=== PATIENT | female | born 1940 | race Caucasian/White ===

== ENCOUNTER 2020-09-06 14:03 | Emergency (ER) | payer OTHER ==
[~2020-09-06] VITALS: Ht 165.1 cm; Wt 68.0 kg
--- NOTE | ~2020-09-06 | EMS ---
[address] [address] EMS Patient Care Report Name: BILL MEJIA [id number] Admission: 09/06/20 Attend Phys: Discharge: Date of : 38 Report #: [id number] THIS REPORT FOR: //name// Report Transmitted: 09/06/2020 14:03 EMS Care Summary [facility] [place] Incident [id number] @ 09/06/2020 13:21 Incident [id number] [place] [address] Patient LAURA MEJIA Female, 80 Years 1940 Patient Address [address] [place] [address] Patient History Hypertension (HTN),Hyperlipidemia, Patient Allergies , Patient Medications Aspirin, Chief Complaint Weakness Disposition Transported No Lights/[place] Dispatch Reason Sick Person Transported To [facility] Narrative Dispatched to address noted for weakness. [facility] en route at time noted. Arrived and found [facility] on scene with the patient. Patient was laying in bed. She was awake and alert. Patient stated she fell two times today after having syncopal episodes. Patient stated she does have a history of vasovagal issues [address] [address] EMS Patient Care Report Name: BILL MEJIA Room: [facility] Ch#: [id number] Admission: 09/06/20 Attend Phys: Discharge: Date of : 38 Report #: [id number] but after she was has tested positive for COVID-19 on wednesday she has been more weak and unable to walk short distances. Patient appeared pale but vitals where within normal limits. Patient stated when she fell once today she hit her head on the ground and her left elbow obtained an abrasion. Patient stated no blood thinner use and was able to moved over to stretcher and was buckled in. Patient stated she wanted to go to [facility] and I informed her that [facility] would like all COVID-19 positive patients transported to [facility] and she stated she would rather go to [facility]. Once in ambulance, vitals where started, 12 lead obtained and IV with fluids started. No obvious signs of dehydration noted and no obvious trauma noted after removing her jacket. While en route, vitals where taken at time noted. No major changes noted while en route. Radio report given at time noted. Arrived and took patient to room 16. Patient was moved to bed and RN was given verbal report. RN signed for patient care and patient signed for self. END REPORT EMT-P Henry Mayes Initial Vitals @13:39SpO2: 97, @13:39SpO2: 98, @13:52SpO2: 94, @13:53SpO2: 96, @13:41 @13:39P: 76,R: 16,BP: 118/73, @13:53P: 74,R: 16,BP: 126/70, @13:39GCS: 15, @13:53GCS: 15, @13:34 @13:44Glucose: 114, Assessments @13:34MENTAL:SKIN:HEENT:LUNG SOUNDS:ABDOMEN:PELVIS//GI:EXTREMITIES:PULSE:NEURO: Impression Syncope / Fainting Procedures @13:44 cc () Site: Antecubital-LeftResponse: UnchangedSucceeded@13:4112-Lead ECGResponse: UnchangedSucceeded Timeline 13:34,Call Received 13:21,Dispatch Notified 13:,Psap Call 13:21,Dispatched 13:21,[place] [address] EMS Patient Care Report Name: BILL MEJIA Room: [facility]#: [id number] Admission: 09/06/20 Attend Phys: Discharge: Date of : 38 Report #: [id number] 13:32,On Scene 13:34,At Patient 13:34,BP: / M,PULSE: ,RR: R,SPO2: Ox,ETCO2: ,BG: ,PAIN: ,GCS: , 13:39,BP: / M,PULSE: ,RR: R,SPO2: 97 Ox,ETCO2: ,BG: ,PAIN: ,GCS: , 13:39,BP: / M,PULSE: ,RR: R,SPO2: 98 Ox,ETCO2: ,BG: ,PAIN: ,GCS: , 13:39,BP: 118/73 M,PULSE: 76,RR: 16 R,SPO2: Ox,ETCO2: ,BG: ,PAIN: ,GCS: , 13:39,BP: / M,PULSE: ,RR: R,SPO2: Ox,ETCO2: ,BG: ,PAIN: ,GCS: 15, 13:41,12-Lead ECG,Response: UnchangedSucceeded, 13:41,BP: / M,PULSE: ,RR: R,SPO2: Ox,ETCO2: ,BG: ,PAIN: ,GCS: , 13:44, cc Site: Antecubital-Left,Response: UnchangedSucceeded, 13:44,BP: / M,PULSE: ,RR: R,SPO2: Ox,ETCO2: ,B,PAIN: ,GCS: , 13:46,Depart Scene 13:52,BP: / M,PULSE: ,RR: R,SPO2: 94 Ox,ETCO2: ,BG: ,PAIN: ,GCS: , 13:53,BP: / M,PULSE: ,RR: R,SPO2: 96 Ox,ETCO2: ,BG: ,PAIN: ,GCS: , 13:53,BP: 126/70 M,PULSE: 74,RR: 16 R,SPO2: Ox,ETCO2: ,BG: ,PAIN: ,GCS: , 13:53,BP: / M,PULSE: ,RR: R,SPO2: Ox,ETCO2: ,BG: ,PAIN: ,GCS: 15, 14:15,At Destination 14:26,Call Closed Disclaimer v1.1 Copyright 2020 [employer], [employer] This EMS Care Summary contains data elements from the applicable legal record (which may be displayed differently). It is designed to provide pertinent information for the following purposes: continuity of care, clinical quality, and state data reporting. The complete legal record is available to ED staff and administrators of the receiving hospital in [employer] Patient Tracker. All data is provided "as is."
[2020-09-06] MEDS ORDERED: CARVEDILOL25 MG PO (14:13)
[2020-09-06] MEDS ORDERED: OMEPRAZOLE40 MG PO (14:14)
[2020-09-06] MEDS ORDERED: LEVO-T25 MCG PO (14:14)
[2020-09-06] MEDS ORDERED: SPIRONOLACTONE25 MG PO (14:14)
[2020-09-06] MEDS ORDERED: VENLAFAXINE HCL50 MG PO (14:14)
[2020-09-06] MEDS ORDERED: LOTENSIN40 MG PO (14:14)
[2020-09-06] MEDS ORDERED: DAILY FIBER0.52 GM PO (14:15)
[2020-09-06] MEDS ORDERED: REQUIP 1 MG TABL1 M1 PO (14:15)
[2020-09-06] MEDS ORDERED: PRAVACHOL40 MG PO (14:15)
[2020-09-06] MEDS ORDERED: VITAMIN E1000 UNIT PO (14:15)
[2020-09-06] MEDS ORDERED: VITAMIN C1000 MG PO (14:15)
[2020-09-06] MEDS ORDERED: SUPER B COMPLE1 EAC2 PO (14:16)
[2020-09-06] MEDS ORDERED: OCUVITE EYE +1 EACH PO (14:16)
[2020-09-06] MEDS ORDERED: ASA81BEC PO (14:16)
[2020-09-06] MEDS ORDERED: ONE-A-DAY WOMENS PO (14:16)
[2020-09-06 15:14] LABS: ABSOLUTE LYMPHOCYTES 0.8 thou/uL (0.8-5.3); ABSOLUTE MONOCYTES 0.9 thou/uL (0.0-1.2); ABSOLUTE NEUTROPHILS 3.8 thou/uL (1.6-8.1); BASOPHILS 0.2 %; EOSINOPHILS 0.2 %; HEMATOCRIT 36.2 % (37.0-47.0); HEMOGLOBIN 12.3 gm/dL (12.0-15.0); LYMPHOCYTES 14.2 %; MCH 30.6 pg (26.0-34.0); MCHC 34.1 g/dL (28.0-37.0); MCV 89.7 fL (80.0-100.0); MONOCYTES 16.1 %; MPV 6.6 fl. (7.2-11.1); NUCLEATED RBCS 0 /100WBC; PLATELET COUNT* 148 thou/uL (150-400); POLYS 69.3 %; RBC 4.03 mil/uL (4.20-5.00); RDW-CV 12.5 % (10.5-14.5); WBC 5.4 thou/uL (4.0-11.0)
[2020-09-06 15:23] LABS: CALCIUM 8.7 mg/dL (8.5-10.1); CREATININE 1.2 mg/dL (0.6-1.3); POTASSIUM 4.2 mmol/L (3.5-5.1)
[2020-09-06 15:27] LABS: ALBUMIN 3.3 g/dL (3.4-5.0); APTT 23.9 Seconds (25.0-31.3); INR 1.1; PROTIME 11.3 Seconds (9.20-11.50); TOTAL BILIRUBIN 0.4 mg/dL (<0.1-1.0); TOTAL PROTEIN 6.7 g/dL (6.4-8.2)
[2020-09-06 16:25] VITALS: BP 120/76
--- NOTE | 2020-09-06 17:25 | EKG ---
[place] [address] ELECTROCARDIOGRAM REPORT Name: BILL MEJIA Room: [facility]#: [id number] Admission: 09/06/20 Attend Phys: Discharge: 09/06/20 Date of : 38 Date of Service: 09/06/20 1411 Report #: [id number] THIS REPORT FOR: //name// [facility] ED Test Date: 2020-09-06 Test Time: 14:11:22 Pat Name: BILL MEJIA Department: Room: Gender: F Extractions Technologist: : 1940 Requested By: Ludwig Lopez Order Number: [id number] MD: Kyler Espino Measurements Intervals [place] Rate: 72 P: -30 CT: 181 QRS: -43 QRSD: 92 T: -7 QT: 365 QTc: 400 Interpretive Statements Sinus rhythm Left ventricular hypertrophy Anterior Q waves, possibly due to LVH Borderline T abnormalities, inferior leads No previous ECG available for comparison Electronically Signed On 09-06-2020 17:25:10 [employer] by Kyler Espino [email or web address] <ELECTRONICALLY SIGNED> By: Kyler Espino MD, [facility] 09/06/20 1725 141 141 Kyler Espino MD, [facility] /EPI
== END 2020-09-06 16:30 | disposition home or self-care (01) ==
LOC: M.ERS 14:03
PROVIDERS: Family Medicine
DX: R55 Syncope and collapse (principal); U07.1 COVID-19; I10 Essential (primary) hypertension; E78.00 Pure hypercholesterolemia, unspecified; Z79.899 Other long term (current) drug therapy; Z79.82 Long term (current) use of aspirin; Z88.0 Allergy status to penicillin; Z88.2 Allergy status to sulfonamides